=== PATIENT | male | born 1975 | race African-American/Black ===

== ENCOUNTER → 2016-11-20 | Outpatient (CLI) | payer MEDICARE, OTHER ==
--- NOTE | 2016-11-20 10:27 | MR ---
EXAMINATION TYPE: MR lumbar spine wo con DATE OF EXAM: 11/20/2016 COMPARISON: Plain film 11/15/2015 HISTORY: Lumbago TECHNIQUE: Multiplanar, multisequence images of the lumbar spine were acquired. L1-L2: Normal disc appearance without desiccation. No herniation, protrusion or disc bulging. No ca nal stenosis is present. Foramina are patent bilaterally. L2-L3: Normal disc appearance without desiccation. No herniation, protrusion or disc bulging. No ca nal stenosis is present. Foramina are patent bilaterally. L3-L4: Normal disc appearance without desiccation. No herniation, protrusion or disc bulging. No ca nal stenosis is present. Foramina are patent bilaterally. L4-L5: Normal disc appearance without desiccation. No herniation, protrusion or disc bulging. No ca nal stenosis is present. Foramina are patent bilaterally. L5-S1: Normal disc appearance without desiccation. No herniation, protrusion or disc bulging. No ca nal stenosis is present. Foramina are patent bilaterally. Lumbar segments are intact. No paraspinal masses are identified. Conus medullaris is not included o n the exam. Lumbar vertebral bodies show preserved height, alignment, and bone marrow signal. Disc sp aces are maintained. IMPRESSION: No significant abnormality is evident.
== END | disposition home or self-care (01) ==
LOC: RADMRIMAIN 08:30
PROVIDERS: ATTEND Nurse Practitioner Acute Care
DX: M54.5 Low back pain (principal)
CPT/HCPCS: 72148

== ENCOUNTER → 2017-01-19 | Outpatient (CLI) | payer MEDICARE, OTHER ==
[2017-01-19 08:19] LABS: Basophils % (A) 0 %; CH 30.2; CHCM 33.8; Eosinophils # (A) 0.2 k/uL (0-0.7); Eosinophils % (A) 2 %; HCT 46.2 % (39.0-53.0); HDW 2.49; HGB 15.3 gm/dL (13.0-17.5); Luc # (Auto) 0.22; Luc % (Auto) 3; Lymphocytes # (A) 2.8 k/uL (1.0-4.8); Lymphocytes % (A) 42 %; MCH 29.8 pg (25.0-35.0); MCHC 33.2 g/dL (31.0-37.0); MCV 89.8 fL (80.0-100.0); Mean Platelet Volume 8.4; Monocytes # (A) 0.5 k/uL (0-1.0); Monocytes % (A) 7 %; Neutrophils # (A) 2.9 k/uL (1.3-7.7); Neutrophils % (A) 45 %; RBC 5.14 m/uL (4.30-5.90); RDW 14.4 % (11.5-15.5); WBC 6.5 k/uL (3.8-10.6); WBC (Perox) 6.37
[2017-01-19 08:22] LABS: ALT 47 U/L (21-72); AST 34 U/L (17-59); Alkaline Phosphatase 55 U/L (38-126); Anion Gap 11 mmol/L; Blood Urea Nitrogen 17 mg/dL (9-20); Calcium 9.2 mg/dL (8.4-10.2); Carbon Dioxide 26 mmol/L (22-30); Chloride 105 mmol/L (98-107); Cholesterol 163 mg/dL (<200); Glucose 102 mg/dL (74-99); HDL Cholesterol 34 mg/dL (40-60); Non-African American GFR(MDRD) >60 (>60 ml/min/1.73 sqM); Sodium 142 mmol/L (137-145); Total Bilirubin 0.3 mg/dL (0.2-1.3); Total Protein 7.5 g/dL (6.3-8.2); Triglycerides 130 mg/dL (<150)
== END | disposition home or self-care (01) ==
LOC: LABWHC1 07:43
DX: E66.01 Morbid (severe) obesity due to excess calories (principal); F33.0 Major depressive disorder, recurrent, mild; Z51.81 Encounter for therapeutic drug level monitoring
CPT/HCPCS: 36415; 80053; 80061; 85025

== ENCOUNTER → 2017-09-16 | Outpatient (CLI) | payer MEDICARE, OTHER ==
--- NOTE | 2017-09-16 15:51 | NM ---
EXAMINATION TYPE: NM bone scan whole body DATE OF EXAM: 09/16/2017 COMPARISON: NONE HISTORY: M13.0 Delayed whole-body scanning was performed following the injection of 23.9 mCi Tc 99m MDP. Images acq uired 3 hours post injection. FINDINGS: Uptake is noted within the feet, ankles, knees, hands, wrists, hips, shoulders, sternoclavicular join ts. Uptake in the maxilla and mandible likely due to periodontal disease. Soft tissue uptake is lan l. IMPRESSION: Findings could be indicative of arthropathy and correlate with patient's history.
== END | disposition home or self-care (01) ==
LOC: RADNMMAIN 11:03
PROVIDERS: ATTEND Physical Medicine & Rehabilitation
DX: M13.0 Polyarthritis, unspecified (principal)
CPT/HCPCS: 78306; A9503

== ENCOUNTER 2024-02-24 18:18 | Emergency (ER) | payer MEDICARE, OTHER ==
[2024-02-24 18:25] LABS: Glucose,Whole Blood 427 mg/dL (70-110)
--- NOTE | 2024-02-24 19:41 | ED ---
General Adult HPI - General Chief complaint: Dizziness Stated complaint: high blood sugar/dizzy Time Seen by Provider: 02/24/24 18:30 Source: patient Mode of arrival: ambulatory Limitations: no limitations - History of Present Illness Initial comments: 49-year-old male presents emergency department reporting dizziness, blurred vision, dry mouth and high blood sugar. Patient is a known diabetic. States he does not check his sugars at home. He also does not take his metformin because it causes him to have cramps no history of DKA. Denies any nausea or vomiting. No abdominal pain. Denies chest pain or difficulty breathing. No other alleviating, precipitating or modifying factors - Related Data Previous Rx's Medication Instructions Recorded Blood Sugar Diagnostic [Glucose 1 each MC ACHS #120 strip 02/24/24 Test Strip] Lancets 1 each MISCELLANE QID #120 each 02/24/24 glipiZIDE 5 mg PO DAILY #30 tab 02/24/24 Allergies Allergy/AdvReac Type Severity Reaction Status Date / Time No Known Allergies Allergy Verified 02/24/24 18:23 Review of Systems ROS Statement: Those systems with pertinent positive or pertinent negative responses have been documented in the HPI. ROS Other: All systems not noted in ROS Statement are negative. Past Medical History Past Medical History: Diabetes Mellitus, Hyperlipidemia, Hypertension History of Any Multi-Drug Resistant Organisms: None Reported Past Surgical History: No Surgical Hx Reported Past Psychological History: No Psychological Hx Reported Smoking Status: Never smoker Past Alcohol Use History: None Reported Past Drug Use History: None Reported General Exam Limitations: no limitations General appearance: alert, in no apparent distress Head exam: Present: atraumatic, normocephalic, normal inspection Eye exam: Present: normal appearance, PERRL, EOMI. Absent: scleral icterus, conjunctival injection, periorbital swelling ENT exam: Present: normal exam, mucous membranes moist Neck exam: Present: normal inspection. Absent: tenderness, meningismus, lymphadenopathy Respiratory exam: Present: normal lung sounds bilaterally. Absent: respiratory distress, wheezes, rales, rhonchi, stridor Cardiovascular Exam: Present: regular rate, normal rhythm, normal heart sounds. Absent: systolic murmur, diastolic murmur, rubs, gallop, clicks GI/Abdominal exam: Present: soft, normal bowel sounds. Absent: distended, tenderness, guarding, rebound, rigid Extremities exam: Present: normal inspection, full ROM, normal capillary refill. Absent: tenderness, pedal edema, joint swelling, calf tenderness Back exam: Present: normal inspection Neurological exam: Present: alert, oriented X3, CN II-XII intact Psychiatric exam: Present: normal affect, normal mood Skin exam: Present: warm, dry, intact, normal color. Absent: rash Course Vital Signs 02/24/24 02/24/24 18:20 22:50 Temperature 97.4 F L 98.0 F Pulse Rate 99 96 Respiratory 18 16 Rate Blood Pressure 152/99 140/94 O2 Sat by Pulse 98 96 Oximetry Medical Decision Making - Medical Decision Making Was pt. sent in by a medical professional or institution (, PA, HORSE FARM MANAGER, urgent care, hospital, or correction...) When possible be specific @ -No Did you speak to anyone other than the patient for history (EMS, parent, family, police, friend...)? What history was obtained from this source @ -Spoke with the patient's for history Did you review nursing and triage notes (agree or disagree)? Why? @ -I reviewed and agree with nursing and triage notes Were old charts reviewed (outside hosp., previous admission, EMS record, old EKG, old radiological studies, urgent care reports/EKG's, correction records)? Report findings @ -No old charts were reviewed Differential Diagnosis (chest pain, altered mental status, abdominal pain women, abdominal pain men, vaginal bleeding, weakness, fever, dyspnea, syncope, headache, dizziness, GI bleed, back pain, seizure, CVA, palpatations, mental health, musculoskeletal)? @ -Differential Weakness: Hypoglycemia, shock, sepsis, hyponatremia, anemia, infection, [place], ETOH, adverse medicine reaction, overdose, stroke, this is not meant to be an all-inclusive list. EKG interpreted by me (3pts min.). @ -Demonstrates sinus rhythm with rate of 92. Parable 166. QRS 88. QTc of 380. No acute ST segment elevations or depressions X-rays interpreted by me (1pt min.). @ -None done CT interpreted by me (1pt min.). @ -None done U/S interpreted by me (1pt. min.). @ -None done What testing was considered but not performed or refused? (CT, X-rays, U/S, labs)? Why? @ -None What meds were considered but not given or refused? Why? @ -None Did you discuss the management of the patient with other professionals (professionals i.e. , PA, HORSE FARM MANAGER, lab, RT, psych nurse, criminal justice social worker, formulator, teacher, trust officer, immigration case manager)? Give summary @ -No Was smoking cessation discussed for >3mins.? @ -No Was critical care preformed (if so, how long)? @ -No Were there social determinants of health that impacted care today? How? (Homelessness, low income, unemployed, alcoholism, drug addiction, transportation, low edu. Level, literacy, decrease access to med. care, intermediate, rehab)? @ -No Was there de-escalation of care discussed even if they declined (Discuss DNR or withdrawal of care, Hospice)? DNR status @ -No What co-morbidities impacted this encounter? (DM, HTN, Smoking, COPD, CAD, Cancer, CVA, ARF, Chemo, Hep., AIDS, mental health diagnosis, sleep apnea, morbid obesity)? @ -Diabetes mellitus Was patient admitted / discharged? Hospital course, mention meds given and route, prescriptions, significant lab abnormalities, going to OR and other pertinent info. @ -Upon arrival patient seen and evaluated in room 10. Thorough history and ph ysical exam was performed. Laboratory studies are conducted. Patient is given IV fluids and sugars are rechecked. Patient does have improvement in his blood pressures. He will be discharged home at this time. Instructed to follow-up with his primary care doctor for further management of his diabetes. I did provide the patient with prescriptions for new medication to try. Instructed to return for any new or worsening symptoms Undiagnosed new problem with uncertain prognosis? @ -No Drug Therapy requiring intensive monitoring for toxicity (Heparin, Nitro, Insulin, Cardizem)? @ -No Were any procedures done? @ -No Diagnosis/symptom? @ -Acute hyperglycemia, history of diabetes mellitus, medical noncompliance Acute, or Chronic, or Acute on Chronic? @ -Acute Uncomplicated (without systemic symptoms) or Complicated (systemic symptoms)? @ -Complicated Side effects of treatment? @ -No Exacerbation, Progression, or Severe Exacerbation? @ -No Poses a threat to life or bodily function? How? (Chest pain, [place], [place], pneumonia, PE, COPD, DKA, ARF, appy, cholecystitis, CVA, Diverticulitis, Homicidal, Suicidal, threat to staff... and all critical care pts) @ -No - Lab Data Result diagrams: 02/24/24 19:55 02/24/24 19:55 Lab Results 02/24/24 02/24/24 02/24/24 Range/Units 18:23 19:55 19:55 WBC 6.5 (3.8-10.6) k/uL RBC 5.42 (4.30-5.90) m/uL Hgb 15.6 (13.0-17.5) gm/dL Hct 46.1 (39.0-53.0) % MCV 85.0 (80.0-100.0) fL MCH 28.8 (25.0-35.0) pg MCHC 33.8 (31.0-37.0) g/dL RDW 13.4 (11.5-15.5) % Plt Count 259 (150-450) k/uL MPV 9.5 Neutrophils % 51 % Lymphocytes % 39 % Monocytes % 6 % Eosinophils % 1 % Basophils % 1 % Neutrophils # 3.3 (1.3-7.7) k/uL Lymphocytes # 2.6 (1.0-4.8) k/uL Monocytes # 0.4 (0-1.0) k/uL Eosinophils # 0.1 (0-0.7) k/uL Basophils # 0.1 (0-0.2) k/uL Sodium 132 L (137-145) mmol/L Potassium 4.5 (3.5-5.1) mmol/L Chloride 93 L (98-107) mmol/L Carbon Dioxide 28 (22-30) mmol/L Anion Gap 11 mmol/L BUN 18 (9-20) mg/dL Creatinine 1.01 (0.66-1.25) mg/dL Est GFR (CKD-EPI)AfAm >90 (>60 ml/min/1.73 sqM) Est GFR (CKD-EPI)NonAf 87 (>60 ml/min/1.73 sqM) Glucose 392 H (74-99) mg/dL POC Glucose (mg/dL) 427 H (70-110) mg/dL POC Glu School Bus Driver/Teacher Assistant ID Kim Benton Plasma Lactic Acid Berny (0.7-2.0) mmol/L Calcium 9.8 (8.4-10.2) mg/dL Total Bilirubin 0.7 (0.2-1.3) mg/dL AST 29 (17-59) U/L ALT 65 H (4-49) U/L Alkaline Phosphatase 90 (38-126) U/L Total Protein 8.2 (6.3-8.2) g/dL Albumin 4.6 (3.5-5.0) g/dL Urine Color Urine Appearance (Clear) Urine pH (5.0-8.0) Ur Specific [place] (1.001-1.035) Urine Protein (Negative) Urine Glucose (UA) (Negative) Urine Ketones (Negative) Urine Blood (Negative) Urine Nitrite (Negative) Urine Bilirubin (Negative) Urine Urobilinogen (<2.0) mg/dL Ur Leukocyte Esterase (Negative) Acetone, Qual Negative (Negative) 02/24/24 02/24/24 02/24/24 Range/Units 19:55 20:03 22:20 WBC (3.8-10.6) k/uL RBC (4.30-5.90) m/uL Hgb (13.0-17.5) gm/dL Hct (39.0-53.0) % MCV (80.0-100.0) fL MCH (25.0-35.0) pg MCHC (31.0-37.0) g/dL RDW (11.5-15.5) % Plt Count (150-450) k/uL MPV Neutrophils % % Lymphocytes % % Monocytes % % Eosinophils % % Basophils % % Neutrophils # (1.3-7.7) k/uL Lymphocytes # (1.0-4.8) k/uL Monocytes # (0-1.0) k/uL Eosinophils # (0-0.7) k/uL Basophils # (0-0.2) k/uL Sodium (137-145) mmol/L Potassium (3.5-5.1) mmol/L Chloride (98-107) mmol/L Carbon Dioxide (22-30) mmol/L Anion Gap mmol/L BUN (9-20) mg/dL Creatinine (0.66-1.25) mg/dL Est GFR (CKD-EPI)AfAm (>60 ml/min/1.73 sqM) Est GFR (CKD-EPI)NonAf (>60 ml/min/1.73 sqM) Glucose (74-99) mg/dL POC Glucose (mg/dL) 296 H (70-110) mg/dL POC Glu School Bus Driver/Teacher Assistant ID [address] Plasma Lactic Acid Berny 1.7 (0.7-2.0) mmol/L Calcium (8.4-10.2) mg/dL Total Bilirubin (0.2-1.3) mg/dL AST (17-59) U/L ALT (4-49) U/L Alkaline Phosphatase (38-126) U/L Total Protein (6.3-8.2) g/dL Albumin (3.5-5.0) g/dL Urine Color Colorless Urine Appearance Clear (Clear) Urine pH 5.5 (5.0-8.0) Ur Specific [place] 1.032 (1.001-1.035) Urine Protein Negative (Negative) Urine Glucose (UA) 4+ H (Negative) Urine Ketones Negative (Negative) Urine Blood Negative (Negative) Urine Nitrite Negative (Negative) Urine Bilirubin Negative (Negative) Urine Urobilinogen <2.0 (<2.0) mg/dL Ur Leukocyte Esterase Negative (Negative) Acetone, Qual (Negative) Disposition Clinical Impression: Hyperglycemia due to diabetes mellitus Disposition: HOME SELF-CARE Condition: Stable Instructions (If sedation given, give patient instructions): Diabetic Hyperglycemia (ED) Additional Instructions: Take the Jardiance and the glipizide as directed. Follow-up with your primary care doctor to discuss further treatment options to control your blood sugars. You need a dedicated diabetic eye exam within the next month. Return to the emergency department for any new or worsening symptoms Prescriptions: glipiZIDE 5 mg PO DAILY #30 tab Blood Sugar Diagnostic [Glucose Test Strip] 1 each MC ACHS #120 strip Lancets 1 each MISCELLANE QID #120 each Is patient prescribed a controlled substance at d/c from ED?: No Referrals: Yumiko Astudillo DO [Primary Care Provider] - 1-2 days Time of Disposition: 22:31
[2024-02-24] MEDS: SODIUM CHLORIDE 0.9% 1,000 ML IV STA (19:58)
[2024-02-24 20:18] LABS: Appearance,Urine Clear (Clear); Bilirubin,Urine Negative (Negative); Blood,Urine Negative (Negative); Color,Urine Colorless; Glucose,Urine (UA) 4+ (Negative); Ketones,Urine Negative (Negative); Leukocyte Esterase,Urine Negative (Negative); Nitrite,Urine Negative (Negative); PH, Urine 5.5 (5.0-8.0); Protein,Urine Negative (Negative); Specific Gravity,Urine 1.032 (1.001-1.035); Urobilinogen,Urine <2.0 mg/dL (<2.0)
[2024-02-24 20:18] LABS: Basophils # (A) 0.1 k/uL (0-0.2); Basophils % (A) 1 %; Eosinophils # (A) 0.1 k/uL (0-0.7); Eosinophils % (A) 1 %; HCT 46.1 % (39.0-53.0); HGB 15.6 gm/dL (13.0-17.5); Lymphocytes # (A) 2.6 k/uL (1.0-4.8); Lymphocytes % (A) 39 %; MCH 28.8 pg (25.0-35.0); MCHC 33.8 g/dL (31.0-37.0); Mean Platelet Volume 9.5; Monocytes # (A) 0.4 k/uL (0-1.0); Monocytes % (A) 6 %; Neutrophils # (A) 3.3 k/uL (1.3-7.7); Neutrophils % (A) 51 %; Platelet Count 259 k/uL (150-450); RBC 5.42 m/uL (4.30-5.90); RDW 13.4 % (11.5-15.5); WBC 6.5 k/uL (3.8-10.6)
[2024-02-24 20:51] LABS: ALT 65 U/L (4-49); AST 29 U/L (17-59); African American GFR (CKD) >90 (>60 ml/min/1.73 sqM); Albumin 4.6 g/dL (3.5-5.0); Alkaline Phosphatase 90 U/L (38-126); Anion Gap 11 mmol/L; Blood Urea Nitrogen 18 mg/dL (9-20); Calcium 9.8 mg/dL (8.4-10.2); Carbon Dioxide 28 mmol/L (22-30); Chloride 93 mmol/L (98-107); Glucose 392 mg/dL (74-99); Non-African American GFR(CKD) 87 (>60 ml/min/1.73 sqM); Potassium 4.5 mmol/L (3.5-5.1); Sodium 132 mmol/L (137-145); Total Bilirubin 0.7 mg/dL (0.2-1.3); Total Protein 8.2 g/dL (6.3-8.2)
[2024-02-24 22:22] LABS: Glucose,Whole Blood 296 mg/dL (70-110)
[2024-02-24] MEDS: INSULIN REGULAR 100 UNIT/ML VIAL (IM/SQ) SQ ONE (22:35)
[2024-02-24 22:51] VITALS: BP 140/94; PULSE 96; RESP 16; TEMP 98
== END 2024-02-24 22:55 | disposition home or self-care (01) ==
LOC: EC 18:18
DX: E11.65 Type 2 diabetes mellitus with hyperglycemia (principal)
CPT/HCPCS: 36415; 80053; 81003; 82009; 83605; 85025; 93005; 96360; 99284

== ENCOUNTER → 2024-03-21 | Outpatient (CLI) | payer MEDICARE, OTHER | LOC: CPPFTMAIN 10:04 | PROVIDERS: ATTEND Pediatrics | DX: R06.00 Dyspnea, unspecified (principal) | CPT/HCPCS: 94060; 94726; 94729 ==

== ENCOUNTER 2024-11-11 10:23 | Inpatient (IN) | payer MEDICARE, OTHER ==
[2024-11-11 10:29] LABS: Glucose,Whole Blood >600 mg/dL (70-110)
--- NOTE | 2024-11-11 10:47 | ED ---
General Adult HPI - General Chief complaint: Recheck/Abnormal Lab/Rx Stated complaint: Irrg Labs Time Seen by Provider: 11/11/24 10:32 Source: patient Mode of arrival: wheelchair - History of Present Illness Initial comments: Dictation was produced using [employer] dictation software. please excuse any grammatical, word or spelling errors. Chief Complaint: 49-year-old male with hyperglycemia History of Present Illness: Patient is a 49-year-old male presents to the emergency department hyperglycemia. Patient has history of diabetes been drinking a lot of sugary beverages recently since being released from care home. Patient has no other complaints. The ROS documented in this emergency department record has been reviewed and confirmed by me. Those systems with pertinent positive or negative responses have been documented in the HPI. All other systems are other negative and/or noncontributory. - Related Data Previous Rx's Medication Instructions Recorded Blood Sugar Diagnostic [Glucose 1 each MC ACHS #120 strip 02/24/24 Test Strip] Lancets 1 each MISCELLANE QID #120 each 02/24/24 glipiZIDE 5 mg PO DAILY #30 tab 02/24/24 Allergies Allergy/AdvReac Type Severity Reaction Status Date / Time No Known Allergies Allergy Verified 11/11/24 10:31 Review of Systems ROS Statement: Those systems with pertinent positive or pertinent negative responses have been documented in the HPI. ROS Other: All systems not noted in ROS Statement are negative. Past Medical History Past Medical History: Diabetes Mellitus, Hyperlipidemia, Hypertension History of Any Multi-Drug Resistant Organisms: None Reported Past Surgical History: No Surgical Hx Reported Additional Past Surgical History / Comment(s): hernia Past Psychological History: No Psychological Hx Reported Smoking Status: Never smoker Past Alcohol Use History: None Reported Past Drug Use History: None Reported General Exam - General Exam Comments Initial Comments: General: Well-appearing, nontoxic, no acute distress. Head: Normocephalic, atraumatic Eyes: PERRLA, EOMI ENT: Airway patent Chest: Nonlabored breathing Skin: No visual rash, normal skin tone Neuro: Alert and oriented 3 Musculoskeletal: No gross abnormalities Course Vital Signs 11/11/24 10:26 Temperature 97.7 F Pulse Rate 119 H Respiratory 18 Rate Blood Pressure 133/91 O2 Sat by Pulse 99 Oximetry Medical Decision Making - Medical Decision Making Was pt. sent in by a medical professional or institution (Dr., PA, APPLIER, urgent care, hospital, or assisted...) When possible be specific @ -No Did you speak to anyone other than the patient for history (EMS, parent, family, police, friend...)? What history was obtained from this source @ -No Did you review nursing and triage notes (agree or disagree)? Why? @ -I reviewed and agree with nursing and triage notes Were old charts reviewed (outside hosp., previous admission, EMS record, old EKG, old radiological studies, urgent care reports/EKG's, assisted records)? Report findings @ -No old charts were reviewed Differential Diagnosis (chest pain, altered mental status, abdominal pain women, abdominal pain men, vaginal bleeding, musculoskeletal, weakness, fever, dyspnea, syncope, headache, dizziness, GI bleed, back pain, seizure, CVA, palpatations, mental health)? @ -DKA, hyperosmolar coma, hyperglycemia EKG interpreted by me (3pts min.). @ -None done X-rays interpreted by me (1pt min.). @ -None done CT interpreted by me (1pt min.). @ -None done U/S interpreted by me (1pt. min.). @ -None done What testing was considered but not performed or refused? (CT, X-rays, U/S, labs)? Why? @ -None What meds were considered but not given or refused? Why? @ -None Was smoking cessation discussed for >3mins.? @ -No Were there social determinants of health that impacted care today? How? (Homelessness, low income, unemployed, alcoholism, drug addiction, transportation, low edu. Level, literacy, decrease access to med. care, care home, rehab)? @ -No Was there de-escalation of care discussed even if they declined (Discuss DNR or withdrawal of care, Hospice)? DNR status @ -No What co-morbidities impacted this encounter? (DM, HTN, Smoking, COPD, CAD, Cancer, CVA, ARF, Chemo, Hep., AIDS, mental health diagnosis, sleep apnea, morbid obesity)? @ -None Was patient admitted / discharged? Hospital course, mention meds given and route, prescriptions, significant lab abnormalities, going to OR and other pertinent info. @ -49-year-old male with hyperglycemia. Vital signs stable. Patient no acute distress. Laboratory evaluation obtained. Sodium 127 glucose of 681. Positive anion gap of 17 with a bicarb of 16. Acetone positive. Clinical presentation consistent with DKA. Patient is well-appearing. Case discussed with hospitalist who agreeable with non-ICU admission. Patient started on insulin drip and DKA protocol Did you discuss the management of the patient with other professionals (bhaskar mendez i.e. , PA, APPLIER, lab, RT, psych nurse, social sciences research scientist, entry rep, teacher, prison officer, residential case manager)? Give summary @ -No Was critical care preformed (if so, how long)? @ -No Undiagnosed new problem with uncertain prognosis? @ -No Drug Therapy requiring intensive monitoring for toxicity (Heparin, Nitro, Insulin, Cardizem)? @ -No Were any procedures done? @ -No Diagnosis/symptom? Acute, or Chronic, or Acute on Chronic? Uncomplicated (without systemic symptoms) or Complicated (systemic symptoms)? @ -DKA Side effects of treatment? @ -No Exacerbation, Progression, or Severe Exacerbation? @ -No Poses a threat to life or bodily function? How? (Chest pain, [place], [place], pneumonia, PE, COPD, DKA, ARF, appy, cholecystitis, CVA, Diverticulitis, Homicidal, Suicidal, threat to staff... and all critical care pts) @ -yes - Lab Data Result diagrams: 11/11/24 10:50 11/11/24 10:50 Lab Results 11/11/24 11/11/24 11/11/24 Range/Units 10:27 10:50 10:50 WBC 7.57 (4.50-10.00) 10*3/uL RBC 5.39 (4.40-5.60) 10*6/uL Hgb 15.6 (13.0-17.0) g/dL Hct 44.7 (39.6-50.0) % MCV 82.9 (80.0-97.0) fL MCH 28.9 (27.0-32.0) pg MCHC 34.9 (32.0-37.0) g/dL Plt Count 269 (140-440) 10*3/uL MPV 11.2 (9.5-12.2) fL Immature Gran % (Auto) 0.3 % Neutrophils % 73.3 % Lymphocytes % 18.9 % Monocytes % 7.1 % Eosinophils % 0.1 % Basophils % 0.3 % Immature Gran # 0.02 (0.00-0.04) 10*3/uL Neutrophils # 5.55 (1.80-7.70) 10*3/uL Lymphocytes # 1.43 (0.90-5.00) 10*3/uL Monocytes # 0.54 (0.20-1.00) 10*3/uL Eosinophils # 0.01 L (0.04-0.35) 10*3/uL Basophils # 0.02 (0.00-0.10) 10*3/uL Sodium 127 L (137-145) mmol/L Potassium 4.6 (3.5-5.1) mmol/L Chloride 94 L (98-107) mmol/L Carbon Dioxide 16 L (22-30) mmol/L Anion Gap 17 mmol/L BUN 40 H (9-20) mg/dL Creatinine 1.38 H (0.66-1.25) mg/dL Est GFR (CKD-EPI)AfAm 69 (>60 ml/min/1.73 sqM) Est GFR (CKD-EPI)NonAf 60 (>60 ml/min/1.73 sqM) Glucose 681 H* (74-99) mg/dL POC Glucose (mg/dL) >600 H* (70-110) mg/dL POC Glu Log Rafter ID [place] Calcium 9.0 (8.4-10.2) mg/dL Acetone, Qual (Negative) 11/11/24 11/11/24 11/11/24 Range/Units 10:50 12:00 13:07 WBC (4.50-10.00) 10*3/uL RBC (4.40-5.60) 10*6/uL Hgb (13.0-17.0) g/dL Hct (39.6-50.0) % MCV (80.0-97.0) fL MCH (27.0-32.0) pg MCHC (32.0-37.0) g/dL Plt Count (140-440) 10*3/uL MPV (9.5-12.2) fL Immature Gran % (Auto) % Neutrophils % % Lymphocytes % % Monocytes % % Eosinophils % % Basophils % % Immature Gran # (0.00-0.04) 10*3/uL Neutrophils # (1.80-7.70) 10*3/uL Lymphocytes # (0.90-5.00) 10*3/uL Monocytes # (0.20-1.00) 10*3/uL Eosinophils # (0.04-0.35) 10*3/uL Basophils # (0.00-0.10) 10*3/uL Sodium (137-145) mmol/L Potassium (3.5-5.1) mmol/L Chloride (98-107) mmol/L Carbon Dioxide (22-30) mmol/L Anion Gap mmol/L BUN (9-20) mg/dL Creatinine (0.66-1.25) mg/dL Est GFR (CKD-EPI)AfAm (>60 ml/min/1.73 sqM) Est GFR (CKD-EPI)NonAf (>60 ml/min/1.73 sqM) Glucose (74-99) mg/dL POC Glucose (mg/dL) 485 H 383 H (70-110) mg/dL POC Glu Log Rafter ID Cody Pepedeshawnkvng Shawn Saulinic Calcium (8.4-10.2) mg/dL Acetone, Qual Positive (Negative) Disposition Clinical Impression: DKA (diabetic ketoacidosis) Disposition: ADMITTED IP TO THIS HOSP Condition: Fair Is patient prescribed a controlled substance at d/c from ED?: No Referrals: Yumiko Astudillo DO [Primary Care Provider] - 1-2 days Decision Time: 13:17
[2024-11-11] MEDS: SODIUM CHLORIDE 0.9% 1,000 ML IV STA (10:58)
[2024-11-11 11:01] LABS: Basophils # (A) 0.02 10*3/uL (0.00-0.10); Basophils % (A) 0.3 %; Eosinophils # (A) 0.01 10*3/uL (0.04-0.35); Eosinophils % (A) 0.1 %; HCT 44.7 % (39.6-50.0); HGB 15.6 g/dL (13.0-17.0); Lymphocytes # (A) 1.43 10*3/uL (0.90-5.00); Lymphocytes % (A) 18.9 %; MCH 28.9 pg (27.0-32.0); MCHC 34.9 g/dL (32.0-37.0); MCV 82.9 fL (80.0-97.0); Mean Platelet Volume 11.2 fL (9.5-12.2); Monocytes # (A) 0.54 10*3/uL (0.20-1.00); Monocytes % (A) 7.1 %; Neutrophils # (A) 5.55 10*3/uL (1.80-7.70); Neutrophils % (A) 73.3 %; Platelet Count 269 10*3/uL (140-440); RBC 5.39 10*6/uL (4.40-5.60); RDW 12.7 % (11.5-14.5); WBC 7.57 10*3/uL (4.50-10.00)
[2024-11-11 11:16] LABS: African American GFR (CKD) 69 (>60 ml/min/1.73 sqM); Anion Gap 17 mmol/L; Blood Urea Nitrogen 40 mg/dL (9-20); Carbon Dioxide 16 mmol/L (22-30); Chloride 94 mmol/L (98-107); Non-African American GFR(CKD) 60 (>60 ml/min/1.73 sqM); Potassium 4.6 mmol/L (3.5-5.1); Sodium 127 mmol/L (137-145)
[2024-11-11 11:32] LABS: Glucose 681 mg/dL (74-99)
[2024-11-11] MEDS ORDERED: DEXTROSE 50% SYRINGE 50 ML IVP PRN ×2 (11:37)
[2024-11-11] MEDS ORDERED: Potassium Replacement Protocol 1 EACH MISC MISCELLANE PRN (11:37)
[2024-11-11] MEDS ORDERED: Magnesium Replacement Protocol 1 EACH MISC MISCELLANE PRN (11:37)
[2024-11-11 12:01] LABS: Glucose,Whole Blood 485 mg/dL (70-110)
[2024-11-11] MEDS: SODIUM CHLORIDE 0.9% 1,000 ML IV SCH (12:26)
[2024-11-11] MEDS: INSULIN REGULAR BOLUS (FROM DRIP BAG) IV ONE (12:37)
[2024-11-11] MEDS: INSULIN REGULAR 100 UNIT in SODIUM CHLORIDE 0.9% 100 ML IV SCH (12:39)
[2024-11-11 13:09] LABS: Glucose,Whole Blood 383 mg/dL (70-110)
[2024-11-11] MEDS ORDERED: NALOXONE 0.4 MG/ML 1 ML VIAL IV PRN (13:14)
[2024-11-11 14:05] LABS: Glucose,Whole Blood 289 mg/dL (70-110)
[2024-11-11 15:08] LABS: Glucose,Whole Blood 198 mg/dL (70-110)
[2024-11-11 16:11] LABS: Glucose,Whole Blood 135 mg/dL (70-110)
[2024-11-11 16:25] LABS: African American GFR (CKD) 82 (>60 ml/min/1.73 sqM); Anion Gap 14 mmol/L; Blood Urea Nitrogen 35 mg/dL (9-20); Carbon Dioxide 23 mmol/L (22-30); Chloride 99 mmol/L (98-107); Glucose 129 mg/dL (74-99); Non-African American GFR(CKD) 71 (>60 ml/min/1.73 sqM); Potassium 3.7 mmol/L (3.5-5.1); Sodium 136 mmol/L (137-145)
[2024-11-11 17:38] LABS: Glucose,Whole Blood 80 mg/dL (70-110)
[2024-11-11] MEDS: D5-0.45% NACL WITH KCL 20MEQ/L 1,000 ML IV SCH (17:53)
[2024-11-11 18:06] LABS: Glucose,Whole Blood 101 mg/dL (70-110)
[2024-11-11 19:18] LABS: Glucose,Whole Blood 179 mg/dL (70-110)
[2024-11-11 20:06] LABS: Glucose,Whole Blood 200 mg/dL (70-110)
[2024-11-11 21:09] LABS: Glucose,Whole Blood 265 mg/dL (70-110)
[2024-11-11 22:07] LABS: Glucose,Whole Blood 229 mg/dL (70-110)
[2024-11-11 23:14] LABS: Glucose,Whole Blood 206 mg/dL (70-110)
[2024-11-12 00:08] LABS: Glucose,Whole Blood 201 mg/dL (70-110)
[2024-11-12 00:15] LABS: African American GFR (CKD) 90 (>60 ml/min/1.73 sqM); Anion Gap 9 mmol/L; Blood Urea Nitrogen 30 mg/dL (9-20); Carbon Dioxide 25 mmol/L (22-30); Chloride 98 mmol/L (98-107); Non-African American GFR(CKD) 78 (>60 ml/min/1.73 sqM); Phosphorus 2.5 mg/dL (2.5-4.5); Potassium 3.8 mmol/L (3.5-5.1); Sodium 132 mmol/L (137-145)
[2024-11-12 01:10] LABS: Glucose,Whole Blood 195 mg/dL (70-110)
[2024-11-12 02:04] LABS: Glucose,Whole Blood 176 mg/dL (70-110)
[2024-11-12 03:22] LABS: Glucose,Whole Blood 182 mg/dL (70-110)
[2024-11-12 04:26] LABS: Glucose,Whole Blood 166 mg/dL (70-110)
[2024-11-12 05:35] LABS: Glucose,Whole Blood 196 mg/dL (70-110)
[2024-11-12 06:16] LABS: Glucose,Whole Blood 168 mg/dL (70-110)
[2024-11-12] MEDS ORDERED: DEXTROSE 50% SYRINGE 50 ML IVP PRN ×2 (06:57)
[2024-11-12 07:02] LABS: Glucose,Whole Blood 163 mg/dL (70-110)
[2024-11-12] MEDS: metFORMIN 500 MG TAB PO SCH (07:18)
[2024-11-12] MEDS: DAPAGLIFLOZIN PROPANEDIOL 10 MG TABLET PO SCH (07:18)
[2024-11-12 07:28] LABS: African American GFR (CKD) >90 (>60 ml/min/1.73 sqM); Anion Gap 8 mmol/L; Blood Urea Nitrogen 25 mg/dL (9-20); Carbon Dioxide 26 mmol/L (22-30); Chloride 101 mmol/L (98-107); Non-African American GFR(CKD) 83 (>60 ml/min/1.73 sqM); Potassium 3.7 mmol/L (3.5-5.1); Sodium 135 mmol/L (137-145)
[2024-11-12] MEDS: INSULIN LISPRO (HumaLOG) 100 UNIT/ML 10 mL VL SQ SCH (07:58)
--- NOTE | 2024-11-12 08:30 | P.HPIM ---
History of Present Illness This is a pleasant 49 years old male, -[place] with past medical history of type 2 diabetes mellitus on metformin 500 mg daily, Jardiance 25 mg daily and Mounjaro/Ozempic once a week. Presents because he was not feeling well with stomach upset nausea generalized weakness and lightheadedness. Patient has recently been incarcerated and he has no access to his diabetes medication. He presents with hyperglycemia and mildly elevated anion gap at 17 with positive acetone suspicious for acute diabetic ketoacidosis related to nonadherence to his medication. Patient received IV fluid and insulin emergency room and started feeling better He denies chest pain or dyspnea or coughing. No abdominal pain or tenderness vomiting or diarrhea. No dysuria or urgency. No headache dizziness weakness or numbness. He denies smoking alcohol or illicit drugs. His blood pressure on the low side 95/60 improved this morning 108/73. He is afebrile the rest of vitals are stable. Is still slightly tachycardic 100-110 CBC and BMP is unremarkable this morning. Glucose is better controlled. Anion gap closed down to 8. Review of Systems Review of systems CONSTITUTIONAL: No fever, no malaise, no fatigue. HEENT: No recent visual problems or hearing problems. Denied any sore throat. CARDIOVASCULAR: No orthopnea, PND, no palpitations, no syncope. PULMONARY: No shortness of breath, no cough, no hemoptysis. GASTROINTESTINAL: No diarrhea, no nausea, no vomiting, no abdominal pain. Normoactive bowel sounds. NEUROLOGICAL: No headaches, no weakness, no numbness. HEMATOLOGICAL: Denies any bleeding or petechiae. GENITOURINARY: Denies any burning micturition, frequency, or urgency. MUSCULOSKELETAL/RHEUMATOLOGICAL: Denies any joint pain, swelling, or any muscle pain. ENDOCRINE: Denies any polyuria or polydipsia. Past Medical History Past Medical History: Diabetes Mellitus, Hyperlipidemia, Hypertension History of Any Multi-Drug Resistant Organisms: None Reported Past Surgical History: No Surgical Hx Reported Additional Past Surgical History / Comment(s): hernia Past Psychological History: No Psychological Hx Reported Smoking Status: Never smoker Past Alcohol Use History: None Reported Past Drug Use History: None Reported - Past Family History Father History Unknown: Yes Medications and Allergies Home Medications Medication Instructions Recorded Confirmed Type Atorvastatin [Lipitor] 20 mg PO DAILY 11/11/24 11/11/24 History Cetirizine HCl 10 mg PO DAILY 11/11/24 11/11/24 History Empagliflozin [Jardiance] 25 mg PO DAILY 11/11/24 11/11/24 History Ergocalciferol (Vitamin D2) 1,250 mcg PO FR 11/11/24 11/11/24 History [Drisdol (GEQ) 1,250 MCG (50,000 IU)] Ferrous Sulfate-Folic Acid 35mg 1 tab PO DAILY 11/11/24 11/11/24 History Iron 1mg (Tulivite) Lisinopril-Hctz 10-12.5 mg 1 tab PO DAILY 11/11/24 11/11/24 History [Zestoretic 10-12.5] Tirzepatide [Mounjaro] 5 mg SQ MO 11/11/24 11/11/24 History metFORMIN HCL 500 mg PO DAILY 11/11/24 11/11/24 History oxyCODONE-APAP 10-325MG [Percocet 1 tab PO TID PRN 11/11/24 11/11/24 History 10-325 mg] Allergies Allergy/AdvReac Type Severity Reaction Status Date / Time No Known Allergies Allergy Verified 11/11/24 13:42 Physical Exam Vitals: Vital Signs Temp Pulse Pulse Resp BP BP Pulse Ox 11/12/24 04:00 98.7 F 103 H 16 108/73 95 11/11/24 23:50 98.3 F 106 H 18 100/62 97 11/11/24 19:50 99.5 F 109 H 16 113/71 97 11/11/24 18:40 98.3 F 107 H 95/66 97 11/11/24 17:47 105 H 18 117/77 99 11/11/24 15:02 111 H 18 112/80 98 11/11/24 10:26 97.7 F 119 H 18 133/91 99 Intake and Output 11/11/24 11/12/24 11/12/24 22:59 06:59 14:59 Intake Total 649.464 11.877 Balance 649.464 11.877 Intake: Intake, IV Titration 649.464 11.877 Amount D5-0.45% NaCl with KCl 600 20Meq/l 1,000 ml @ 150 mls/hr IV .Q6H40M [facility] Rx# :[id number] Insulin Regular 100 unit 49.464 11.877 In Sodium Chloride 0.9% 100 ml @ 0.1 UNITS/KG/HR 12.599 mls/hr IV .Q8H1M [facility] Rx#:[id number] Other: # Voids 1 Weight 124.738 kg 125.9 kg GENERAL: The patient is alert and oriented x3, not in any acute distress. Well developed, well nourished. HEENT: Pupils are round and equally reacting to light. EOMI. No scleral icterus. No conjunctival pallor. Normocephalic, atraumatic. No pharyngeal erythema. No thyromegaly. CARDIOVASCULAR: S1 and S2 present. No murmurs, rubs, or gallops. PULMONARY: Chest is clear to auscultation, no wheezing , no crackles. ABDOMEN: Soft, nontender, nondistended, normoactive bowel sounds. No palpable organomegaly. MUSCULOSKELETAL: No joint swelling or deformity. EXTREMITIES: No cyanosis, clubbing, or pedal edema. NEUROLOGICAL: Gross neurological examination did not reveal any focal deficits. SKIN: No rashes. no petechiae. Results CBC & Chem 7: 11/11/24 10:50 11/12/24 06:39 Labs: Abnormal Lab Results - Last 24 Hours (Table) 11/11/24 11/11/24 11/11/24 Range/Units 10:27 10:50 10:50 Eosinophils # 0.01 L (0.04-0.35) 10*3/uL Sodium 127 L (137-145) mmol/L Chloride 94 L (98-107) mmol/L Carbon Dioxide 16 L (22-30) mmol/L BUN 40 H (9-20) mg/dL Creatinine 1.38 H (0.66-1.25) mg/dL Glucose 681 H* (74-99) mg/dL POC Glucose (mg/dL) >600 H* (70-110) mg/dL Phosphorus (2.5-4.5) mg/dL 11/11/24 11/11/24 11/11/24 Range/Units 12:00 13:07 14:02 Eosinophils # (0.04-0.35) 10*3/uL Sodium (137-145) mmol/L Chloride (98-107) mmol/L Carbon Dioxide (22-30) mmol/L BUN (9-20) mg/dL Creatinine (0.66-1.25) mg/dL Glucose (74-99) mg/dL POC Glucose (mg/dL) 485 H 383 H 289 H (70-110) mg/dL Phosphorus (2.5-4.5) mg/dL 11/11/24 11/11/24 11/11/24 Range/Units 14:59 15:49 16:08 Eosinophils # (0.04-0.35) 10*3/uL Sodium 136 L (137-145) mmol/L Chloride (98-107) mmol/L Carbon Dioxide (22-30) mmol/L BUN 35 H (9-20) mg/dL Creatinine (0.66-1.25) mg/dL Glucose 129 H (74-99) mg/dL POC Glucose (mg/dL) 198 H 135 H (70-110) mg/dL Phosphorus (2.5-4.5) mg/dL 11/11/24 11/11/24 11/11/24 Range/Units 19:17 20:04 21:08 Eosinophils # (0.04-0.35) 10*3/uL Sodium (137-145) mmol/L Chloride (98-107) mmol/L Carbon Dioxide (22-30) mmol/L BUN (9-20) mg/dL Creatinine (0.66-1.25) mg/dL Glucose (74-99) mg/dL POC Glucose (mg/dL) 179 H 200 H 265 H (70-110) mg/dL Phosphorus (2.5-4.5) mg/dL 11/11/24 11/11/24 11/11/24 Range/Units 22:06 23:12 23:32 Eosinophils # (0.04-0.35) 10*3/uL Sodium 132 L (137-145) mmol/L Chloride (98-107) mmol/L Carbon Dioxide (22-30) mmol/L BUN 30 H (9-20) mg/dL Creatinine (0.66-1.25) mg/dL Glucose (74-99) mg/dL POC Glucose (mg/dL) 229 H 206 H (70-110) mg/dL Phosphorus (2.5-4.5) mg/dL 11/12/24 11/12/24 11/12/24 Range/Units 00:07 01:08 02:02 Eosinophils # (0.04-0.35) 10*3/uL Sodium (137-145) mmol/L Chloride (98-107) mmol/L Carbon Dioxide (22-30) mmol/L BUN (9-20) mg/dL Creatinine (0.66-1.25) mg/dL Glucose (74-99) mg/dL POC Glucose (mg/dL) 201 H 195 H 176 H (70-110) mg/dL Phosphorus (2.5-4.5) mg/dL 11/12/24 11/12/24 11/12/24 Range/Units 03:08 04:24 05:33 Eosinophils # (0.04-0.35) 10*3/uL Sodium (137-145) mmol/L Chloride (98-107) mmol/L Carbon Dioxide (22-30) mmol/L BUN (9-20) mg/dL Creatinine (0.66-1.25) mg/dL Glucose (74-99) mg/dL POC Glucose (mg/dL) 182 H 166 H 196 H (70-110) mg/dL Phosphorus (2.5-4.5) mg/dL 11/12/24 11/12/24 11/12/24 Range/Units 06:15 06:39 06:39 Eosinophils # (0.04-0.35) 10*3/uL Sodium 135 L (137-145) mmol/L Chloride (98-107) mmol/L Carbon Dioxide (22-30) mmol/L BUN 25 H (9-20) mg/dL Creatinine (0.66-1.25) mg/dL Glucose (74-99) mg/dL POC Glucose (mg/dL) 168 H (70-110) mg/dL Phosphorus 2.3 L (2.5-4.5) mg/dL 11/12/24 Range/Units 07:01 Eosinophils # (0.04-0.35) 10*3/uL Sodium (137-145) mmol/L Chloride (98-107) mmol/L Carbon Dioxide (22-30) mmol/L BUN (9-20) mg/dL Creatinine (0.66-1.25) mg/dL Glucose (74-99) mg/dL POC Glucose (mg/dL) 163 H (70-110) mg/dL Phosphorus (2.5-4.5) mg/dL Thrombosis Risk Factor Assmnt - Choose All That Apply Each Factor Represents 1 point: Age 41-60 years Thrombosis Risk Factor Assessment Total Risk Factor Score: 1 Thrombosis Risk Factor Assessment Level: Low Risk Assessment and Plan Assessment: Diabetic ketoacidosis, mild Nonadherence to medication Type 2 diabetes mellitus with hyperglycemia Hypotension Obesity with BMI of 34.7 Plan: Patient insulin drip can be stopped Switch back to his metformin but increase dose to 1000 and lower dose of Jardiance to 10 mg Importance of adherence to treatment explained to the patient extensively. Resume home medication GI prophylaxis, DVT prophylaxis, low risk
[2024-11-12 08:44] LABS: African American GFR (CKD) >90 (>60 ml/min/1.73 sqM); Anion Gap 8 mmol/L; Blood Urea Nitrogen 25 mg/dL (9-20); Calcium 8.3 mg/dL (8.4-10.2); Carbon Dioxide 26 mmol/L (22-30); Chloride 100 mmol/L (98-107); Glucose 156 mg/dL (74-99); Non-African American GFR(CKD) 79 (>60 ml/min/1.73 sqM); Potassium 3.8 mmol/L (3.5-5.1); Sodium 134 mmol/L (137-145)
[2024-11-12] MEDS: LISINOPRIL-HCTZ 10-12.5 MG 1 EACH TAB PO SCH (08:49)
[2024-11-12] MEDS: SODIUM CHLORIDE 0.9% 1,000 ML IV ONE (08:49)
[2024-11-12] MEDS: ATORVASTATIN 20 MG TAB PO SCH (08:49)
[2024-11-12 08:54] VITALS: RESP 18
[2024-11-12 11:07] LABS: Glucose,Whole Blood 175 mg/dL (70-110)
[2024-11-12] MEDS ORDERED: ONDANSETRON 4 MG/2 ML VIAL IVP PRN (12:33)
[2024-11-12 12:34] VITALS: BP 118/80; PULSE 89; TEMP 98.2
[2024-11-12 12:38] VITALS: BMI 34.7
[2024-11-12 16:48] LABS: Glucose,Whole Blood 171 mg/dL (70-110)
--- NOTE | 2024-11-13 06:23 | P.DS ---
Providers Date of admission: 11/11/24 13:15 Attending physician: Tito Coffey MD Primary care physician: Yumiko Astudillo [facility] Course: Please consider this is combined H&P and discharge summary, please refer to the H&P from the same day Patient remains clinically stable He remains clinically asymptomatic, get up and go test is normal and physical exam is normal. Sugar has been controlled only by increasing his metformin 500 mg once daily up to 1000 mg twice daily. Jardiance was not needed and was held and discontinued with recommendation to follow-up with PCP in 1 week for reassessment and he agrees Patient states that he has a glucometer at home. Instruction for monitoring of glucose is provided for the patient in details and he verbalized understanding and acceptance Patient remains medically stable and he wants to go home Problems and management plan were discussed with the patient and he verbalized understanding and acceptance Patient was found stable and can be discharged home in guarded prognosis however he needs follow-up as an outpatient. Patient was instructed to follow up with PCP Dr. Calderon within one week and patient agrees Time spent more than 35 minutes Patient Condition at Discharge: Fair Plan - Discharge Summary Discharge Rx Participant: Yes New Discharge Prescriptions: New metFORMIN HCL [Glucophage] 1,000 mg PO BID #60 tab Continue Lisinopril-Hctz 10-12.5 mg [Zestoretic 10-12.5] 1 tab PO DAILY Ferrous Sulfate-Folic Acid 35mg Iron 1mg (Tulivite) 1 tab PO DAILY Tirzepatide [Mounjaro] 5 mg SQ MO Ergocalciferol (Vitamin D2) [Drisdol (GEQ) 1,250 MCG (50,000 IU)] 1,250 mcg PO FR oxyCODONE-APAP 10-325MG [Percocet 10-325 mg] 1 tab PO TID PRN PRN Reason: pain Cetirizine HCl 10 mg PO DAILY Atorvastatin [Lipitor] 20 mg PO DAILY Discontinued Empagliflozin [Jardiance] 25 mg PO DAILY metFORMIN HCL 500 mg PO DAILY Discharge Medication List Atorvastatin [Lipitor] 20 mg PO DAILY 11/11/24 [History] Cetirizine HCl 10 mg PO DAILY 11/11/24 [History] Ergocalciferol (Vitamin D2) [Drisdol (GEQ) 1,250 MCG (50,000 IU)] 1,250 mcg PO FR 11/11/24 [History] Ferrous Sulfate-Folic Acid 35mg Iron 1mg (Tulivite) 1 tab PO DAILY 11/11/24 [History] Lisinopril-Hctz 10-12.5 mg [Zestoretic 10-12.5] 1 tab PO DAILY 11/11/24 [History] Tirzepatide [Mounjaro] 5 mg SQ MO 11/11/24 [History] oxyCODONE-APAP 10-325MG [Percocet 10-325 mg] 1 tab PO TID PRN 11/11/24 [History] metFORMIN HCL [Glucophage] 1,000 mg PO BID #60 tab 11/12/24 [Rx] Follow up Appointment(s)/Referral(s): Yumiko Astudillo DO [Primary Care Provider] - 11/17/24 (You have appointment on 11/17 as an from medical team. Please call to confirm appointment date and time) Patient Instructions/Handouts: Diabetic Ketoacidosis (DC) Activity/Diet/Wound Care/Special Instructions: Low carbohydrate 1800 kcal/day Activity is as tolerated We recommend to check your glucose 4 times a day before each meal and at bedtime, keep the results in a log book and bring it your doctor in your appointment date If your glucose drops less than 70 or more than 400 then come to the emergency room after monitoring your sugar at home , we recommend to follow up with your doctor to check the need to replace (Jardiance) back to your home medication list , in the meantime keep holding it till you see your doctor Discharge Disposition: HOME SELF-CARE
[2024-11-17] MEDS ORDERED: ERGOCALCIFEROL 1,250 MCG (50,000 IU) CAPSULE PO SCH (09:00)
--- NOTE | 2024-11-17 15:14 | CDI ---
Documentation Clarification Form Date: 11/17/2024 03:02:00 PM From: Leeann Charles RN, CCDS Email: [email or web address] Admit Date: 11/11/2024 01:15:00 PM Patient Name: Chao Mao Visit Number: [id number] Discharge Date: 11/12/2024 05:16:00 PM ATTENTION: The Clinical Documentation Specialists (CDI) and [facility] Coding Staff appreciate your assistance in clarifying documentation. Please respond to the clarification below the line at the bottom and electronically sign. The CDI & [facility] Coding staff will review the response and follow-up if needed. Please note: Queries are made part of the Legal Health Record. If you have any questions, please contact the author of this message via ITS. Doctor Tito Sheet The patient had DKA and elevated Cr on admission. Based on this information and the findings below, is there an additional diagnosis that is clinically appropriate for this patient? Patient history/risk factors: From the H&P: Type 2 DM on Metformin. Patient was recently incarcerated with no access to his diabetes medication. Presented not feeling well with stomach upset, nausea, generalized weakness and lightheadedness. Found to have hyperglycemia and mildly elevated anion gap at 17 with positive acetone suspicious for acute diabetic ketoacidosis related to nonadherence to his medication. Clinical Indicators: 11/11-11/12 BUN: 21-77-88--25 11/11-11/12 Cr: 1.38-1.20-1.11-1.06-1.11 11/11 Anion Gap: 17 11/11 Glucose: 681-129 11/11 HR: 119-111-105 H&P: "Presents because he was not feeling well with stomach upset nausea generalized weakness and lightheadedness. Diabetic ketoacidosis, mild." Treatment: 1L 0.9 NS IV bolus x1 on 11/11; 1L0.9 NS IV bolus x1 on 11/12; 0.9 NS @200mL/hr 11/11; Insulin drip titrated 11/11-11/12 Is there an additional diagnosis that is clinically appropriate for this patient? [ x ] Mild Acute Kidney Injury [ ] No additional diagnosis/Not clinically significant [ ] Unable to determine [ ] Other, please specify Reference: KDIGO JORI Criteria An increase in serum creatinine by greater than or equal to 0.3 mg/dL within 48 hours; An increase in serum creatinine by greater than or equal to 1.5 times baseline, which is known or presumed to have occurred within the prior 7 days; A urine volume less than 0.5 ml/kg/h for 6 hours. When the baseline is unknown the lowest creatinine during admission assumed to be baseline MTDD
== END 2024-11-12 17:16 | disposition home or self-care (01) | DRG 638 ==
LOC: EC 10:23 → 3SCARD 13:15
PROVIDERS: ADMIT Internal Medicine; ATTEND Internal Medicine
DX: E11.10 Type 2 diabetes mellitus with ketoacidosis without coma (principal); N17.9 Acute kidney failure, unspecified; E66.9 Obesity, unspecified; I10 Essential (primary) hypertension; I95.9 Hypotension, unspecified; E78.5 Hyperlipidemia, unspecified; Z68.34 Body mass index [BMI] 34.0-34.9, adult; Z91.148 Patient's other noncompliance with medication regimen for other reason; Z79.899 Other long term (current) drug therapy; Z79.84 Long term (current) use of oral hypoglycemic drugs; Z87.19 Personal history of other diseases of the digestive system
CPT/HCPCS: 36415; 80048; 80051; 82009; 82565; 82947; 84100; 84520; 85025; 93005; 96361; 96374; 99285